=== PATIENT | male | born 1945 | race Caucasian/White ===

== ENCOUNTER 2022-05-10 16:45 | Emergency (ER) | payer MEDICARE, SELFPAY ==
--- NOTE | ~2022-05-10 | XR_ITS ---
EXAM: XR foot LT min 3V DATE: 05/10/2022 17:43 HISTORY: KNI. R/0 OSTEOMYLITIS MEDIAL ASPECT. ATTN: GREAT TOE. . COMPARISON: None available. FINDINGS: Severe osteopenia. No fracture or dislocation. No lytic or blastic lesion. Scattered degen erative change. No erosion or periosteal change. Soft tissues within normal limits. IMPRESSION: No radiographic evidence of osteomyelitis in the left foot. Reviewed, dictated and finalized at location K.
--- NOTE | 2022-05-10 16:53 | ED.SKABFB ---
HPI - Skin/Abscess/Foreign Bdy General Chief complaint: Skin/Abscess/Foreign Body Stated complaint: Skin Sore/ Toe Time Seen by Provider: 05/10/22 16:53 Source: patient and RN notes reviewed History of Present Illness HPI narrative: Patient is a 76-year-old male who presents to urgent care with complaints of a sore to the left great toe that is been there for approximately 2 weeks. Patient is unsure of what caused the injury. States that it does not appear to be healing. Denies any recent fevers, nausea, vomiting. Patient has not done anything [id number] for his sore. No other acute complaints. No acute distress noted. Patient aware of the plan of care. Some parts of this dictation were generated by voice recognition software and may contain typographical and/or grammatical inaccuracies. Related Data Home Medications Medication Instructions Recorded Confirmed acetaminophen 300 mg-codeine 30 mg tablet 05/10/22 tablet hydrocodone 5 mg-acetaminophen 325 tablet 05/10/22 mg tablet mirtazapine 30 mg tablet mg 05/10/22 valsartan 80 mg tablet mg 05/10/22 Allergies Allergy/AdvReac Type Severity Reaction Status Date / Time No Known Allergies Allergy Verified 05/10/22 16:59 Review of Systems Review of Systems: CONSTITUTIONAL: Denies fever, chills, or sweats. EYES: Denies visual changes, redness, or discharge. ENT: Denies rhinorrhea, congestion, sore throat, or otalgia. CARDIOVASCULAR: Denies chest pain, palpitations, or edema. RESPIRATORY: Denies cough or dyspnea. GASTROINTESTINAL: Denies abdominal pain, nausea, vomiting, or diarrhea. GENITOURINARY: Denies dysuria or hematuria. SKIN: Reports of a nonhealing sore to the left great toe MUSCULOSKELETAL: Denies back pain, joint pain, or myalgia. NEUROLOGIC: Denies headache, numbness, or weakness. All other systems reviewed are negative, except as documented in HPI. PMFSH Comments At the time of my signature, I reviewed and agree with the nursing past medical, surgical, social, and family history. There is no relevant family history pertinent to the patient complaint. Exam Narrative: GENERAL: This is a well-nourished, well-developed patient, in no apparent distress. HEAD: normocephalic, atraumatic. EYES: PERRL. Sclera clear/white. Vision is grossly intact. EARS: External ears normal, auditory canals clear and without drainage, TMs normal without perforation. Hearing grossly intact. NOSE: External nose normal with no obvious nasal discharge, nares without redness, no rhinorrhea. THROAT: Mucous membranes moist, posterior pharynx clear. NECK: Neck supple SKIN: 1 cm circular dark non open wound to the medial aspect of the left great toe with moderate surrounding erythema and mild edema. Severe fungus. Warm, intact with no suspicious lesions or rash, good texture and turgor. NEURO: awake, alert, and oriented to person, place and time. There were no obvious focal neurologic abnormalities. EXTREMITIES: Moderate erythema and mild edema involving all 5 digits to the left foot more controlled to the left great toe extending into the 1st metatarsal with mild tenderness. Range of motion left lower extremity within normal limits. Positive strong left pedal pulse. Course Course Level of Care: Express Care Visit Vital Signs Vital signs: Vital Signs Temperature 97.9 F 05/10/22 17:02 Pulse Rate 115 H 05/10/22 17:02 Respiratory Rate 20 05/10/22 17:02 Blood Pressure 113/78 05/10/22 17:02 Pulse Oximetry 97 05/10/22 17:02 Oxygen Delivery Room Air 05/10/22 17:02 Temperature 97.9 F 05/10/22 17:02 Pulse Rate 115 H 05/10/22 17:02 Respiratory Rate 20 05/10/22 17:02 Blood Pressure 113/78 05/10/22 17:02 Pulse Oximetry 97 05/10/22 17:02 Oxygen Delivery Room Air 05/10/22 17:02 Reviewed MDM - Skin/Abscess/Foreign Bdy MDM Narrative Medical decision making narrative: Reviewed x-ray results with the patient family member. Aware that
[2022-05-10 17:02] VITALS: BP 113/78; PULSE 115; RESP 20; TEMP 36.6; O2SAT 97
== END 2022-05-10 18:07 | disposition home or self-care (01) ==
PROVIDERS: Emergency Provider Nurse Practitioner Family
DX: L03.032 Cellulitis of left toe (principal)
CPT/HCPCS: 73630; 99213; G0463